=== PATIENT | male | born 1970 | race Caucasian/White ===

== ENCOUNTER 2019-07-19 11:42 | Emergency (ER) | payer MEDICAID ==
[~2019-07-19] VITALS: Ht 182.9 cm; Wt 92.8 kg
[2019-07-19 11:56] VITALS: BP 148/88
[2019-07-19] MEDS ORDERED: ACET-3067 PO (12:43)
[2019-07-19] MEDS ORDERED: IBUP-1984 PO (12:43)
[2019-07-19] MEDS ORDERED: CYCL-1 PO (12:43)
[2019-07-19] MEDS ORDERED: HYDROcodone/acetaminophen 5mg/325mg tablet PO ONE (12:45)
== END 2019-07-19 13:05 | disposition home or self-care (01) ==
LOC: ER 11:42
DX: M54.5 Low back pain (principal); G89.29 Other chronic pain; F12.90 Cannabis use, unspecified, uncomplicated; F17.200 Nicotine dependence, unspecified, uncomplicated; Z88.6 Allergy status to analgesic agent
CPT/HCPCS: 99283